=== PATIENT | female | born 1995 | race Caucasian/White ===

== ENCOUNTER → 2016-03-07 | Outpatient (CLI) | payer OTHER ==
--- NOTE | 2016-03-07 09:33 | US ---
EXAMINATION TYPE: US abdomen complete DATE OF EXAM: 03/07/2016 9:21 AM COMPARISON: NONE CLINICAL HISTORY: generalized abdominal pain, nausea. EXAM MEASUREMENTS: Liver Length: 10.8 cm Gallbladder Wall: 0.3 cm CBD: 0.3 cm Spleen: 8.9 cm Right Kidney: 9.6 x 4.0 x 4.4 cm Left Kidney: 8.2 x 3.5 x 4.2 cm ANATOMY: Pancreas: visualized portions wnl Liver: Within normal limits Gallbladder: no stones seen Evidence for sonographic Blackman's sign: No CBD: Within normal limits Spleen: Within normal limits Right Kidney: No hydronephrosis or masses seen Left Kidney: No hydronephrosis or masses seen Upper IVC: Within normal limits Abd Aorta: Within normal limits The liver is homogenous. The intrahepatic portion of the IVC and proximal abdominal aorta are within normal limits. There is no evidence of cholelithiasis. Common bile duct is unremarkable. The visu alized portions of the pancreas are homogenous. The spleen is unremarkable. Kidneys are symmetric a nd free of hydronephrosis. No renal lesions are seen. IMPRESSION: No significant abnormality appreciated. Normal Values: Liver Length: < 16cm wnl, 17-18cm upper limits, >18cm enlarged Spleen Length = < 13cm Renal Length = 9 - 12cm GB Wall: < 0.3cm CBD: < 0.6cm or < 1.0cm post cholecystectomy
== END | disposition home or self-care (01) ==
LOC: RADUSWWP 08:49
PROVIDERS: ATTEND Internal Medicine
DX: R10.84 Generalized abdominal pain (principal); Z90.49 Acquired absence of other specified parts of digestive tract
CPT/HCPCS: 76700